=== PATIENT | female | born 1990 | race Caucasian/White ===

== ENCOUNTER 2017-01-29 19:28 | Emergency (ER) | payer OTHER | END 2017-01-29 22:38 | disposition home or self-care (01) | LOC: ER 19:28 → EDBD 19:28 → ER 22:38 | DX: R10.11 Right upper quadrant pain (principal); R11.2 Nausea with vomiting, unspecified; R19.7 Diarrhea, unspecified; Z87.891 Personal history of nicotine dependence | CPT/HCPCS: 36415; 96374; 96375; Q9963; Q9967 ==